=== PATIENT | male | born 1955 | race Caucasian/White ===

== ENCOUNTER 2022-02-07 13:17 | Emergency (ER) | payer MEDICARE, SELFPAY ==
[2022-02-07 13:36] VITALS: BP 133/73; PULSE 92; RESP 16; TEMP 36.7; O2SAT 97
--- NOTE | 2022-02-07 14:02 | ED.GENADUL_ITS ---
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 Please stop taking atorvastatin while you are taking Paxlovid and for 3 days after you have completed paxlovid. Then you may resume taking atorvastatin as usual. Discharge Instructions Additional Instructions: Please return immediately to the emergency department if you develop any new or worsening symptoms, if your condition does not improve as expected, or if you become otherwise concerned. It is extremely important that you call soon as possible to make an appointment to be seen in follow-up for this visit by your primary care doctor. You have been prescribed Paxlovid for COVID-19. It is very important that you stop taking your atorvastatin while you are taking Paxlovid and for 3 days after you have finished taking Paxil AVID. Then you may resume taking atorvastatin as usual. Discharge Data Discharge Date/Time-TO BE ENTERED AT DEPARTURE: 02/07/22 17:09 Medical Decision Making Heri Adkins is a 66-year-old man with a history of hyperlipidemia, hypertension, diabetes presenting to the emergency department with COVID. Patient is accompanied by his who is in the exam room with him and is also registered as a patient COVID-positive with similar symptoms. Tested positive for COVID at home yesterday. Patient reports that he became symptomatic 2 days ago, states that his son tested positive for COVID 4 days ago. Patient reports that has had some mild toe pain, denies any other pain, denies current pain. Reports cough, rhinorrhea, denies fevers, vomiting, diarrhea, shortness of breath, numbness, weakness. Patient reports that he has no pain currently in the emergency department. Patient reports that he has been eating and drinking as usual. Patient and his report that they are from [place], and are driving home in a few days. They state that they have presented to the emergency department to receive paxlovid, and otherwise would not have come to the emergency department and do not want further evaluation at this time. Patient is well and nontoxic-appearing on exam. Concern for COVID-19. Exam/history at this time is not consistent with acute coronary syndrome, pulmonary embolism, sepsis, other acute emergent life-threatening process. Patient requesting Paxlovid, given that we have no history in our system, plan for screening CMP to evaluate renal/hepatic function. Patient home medications checked with Paxlovid for interaction, patient should stop atorvastatin. Patient was counseled that he should not take atorvastatin while he is taking Paxlovid and for 3 days after he completes atorvastatin. Patient verbalized understanding and is amenable. I had a discussion with Patient regarding return to emergency department precautions, home care, and importance of outpatient follow-up. Pt verbalizes understanding of the plan and is amenable. Patient discharged to home with clear plan for outpatient follow- up. All questions were answered. Disposition decision was made weighing the risks and benefits of hospitalization versus outpatient treatment, the risk for further decompensation, and the patient's wishes. Medical Records Medical records reviewed: Yes I reviewed the patient's medical records. Lab Data Lab results reviewed: Yes I reviewed the patient's lab results. Labs: Laboratory Tests Range/Units 02/07/22 15:05 Sodium (136-145) mmol/L 137 Potassium (3.5-5.1) mmol/L 3.9 Chloride (98-107) mmol/L 102 Carbon Dioxide (21.0-32.0) mmol/L 23.9 Anion Gap (3-11) mmol/L 11.1 H BUN (7-18) mg/dL 25 H Creatinine (0.70-1.30) mg/dL 1.3 Estimated GFR/1.73 m2 (mL/min/1.73m2) 55.23 Glucose (74-106) mg/dL 120 H Calcium (8.5-10.1) mg/dL 9.3 Total Bilirubin (0.2-1.0) mg/dL 0.9 AST (15-37) U/L 23 ALT (16-63) U/L 26 Alkaline Phosphatase (46-116) U/L 86 Total Protein (6.4-8.2) g/dL 8.3 H Albumin (3.4-5.0) g/dL 4.2 HPI General Mode of arrival: ambulatory . Date/Time Provider Initiated Documentation: 02/07/22 13:38 . Limitations to Documentation: no limitations . Information obtained by: patient, RN notes reviewed and old records reviewed . HPI Narrative: Heri Adkins is a 66-year-old man with a history of hyperlipidemia, hypertension, diabetes presenting to the emergency department with COVID. Patient is accompanied by his who is in the exam room with him and is also registered as a patient COVID-positive with similar symptoms. Tested positive for COVID at home yesterday. Patient reports that he became symptomatic 2 days ago, states that his son tested positive for COVID 4 days ago. Patient reports that has had some mild toe pain, denies any other pain, denies current pain. Reports cough, rhinorrhea, denies fevers, vomiting, diarrhea, shortness of breath, numbness, weakness. Patient reports that he has no pain currently in the emergency department. Patient reports that he has been eating and drinking as usual. Patient and his report that they are from [place], and are driving home in a few days. They state that they have presented to the emergency department to receive paxlovid, and otherwise would not have come to the emergency department and do not want further evaluation at this time. 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 PO DAILY 02/07/22 02/07/22 Thyroid) Allergies Allergy/AdvReac Type Severity Reaction Status Date / Time No Known Allergies Allergy Unverified 02/07/22 13:39 General Stated Complaint: RespSymp SHALOM: 4 Review of Systems Narrative: Constitutional: denies fevers Eyes: denies eye pain ENT: denies ear pain, dental pain, sore throat Cardiovascular: denies chest pain, edema Respiratory: denies SOB, reports cough GI: denies abdominal pain, vomiting, diarrhea : denies flank pain MSK: denies back pain, neck pain, arthralgias, myalgias, reports intermittent toe pain Skin: denies rash Neuro: denies headaches, numbness, weakness PFSH All Active Problems COVID-19 (Acute) Social History Smoking/Tobacco Use Status: Never Smoking risk assessment performed?: Yes Alcohol Intake: current Alcohol Intake frequency: a few times a week Substance use type: does not use Do you feel safe at home: Yes Do you feel safe in your relationship?: Yes Exam Narrative Exam Narrative: Constitutional: well and [id number], pleasant, conversing normally HENT: head atraumatic/normocephalic/normal inspection, mucous membranes moist Eyes: conjunctiva normal, sclera normal, pupils 3mm b/l Neck: no stridor, normal ROM, trachea midline Resp: normal work of breathing, speaking in full sentences Cardio: normal rate, normal rhythm Skin: warm, dry, normal color, no rash Neuro: alert, not altered, grossly non-focal, normal tone, normal gait Ext: Moving all extremities equally Psych: normal mood, normal affect, normal behavior Course Vital Signs Vital signs: Vital Signs Temperature 36.7 C 02/07/22 13:36 Pulse 92 H 02/07/22 13:36 Respiratory Rate 16 02/07/22 13:36 Blood Pressure 133/73 02/07/22 13:36 Pulse Oximetry 97 02/07/22 13:36 Temperature 36.7 C 02/07/22 13:36 Pulse 92 H 02/07/22 13:36 Respiratory Rate 16 02/07/22 13:36 Respiratory Effort 02/07/22 13:41 Blood Pressure 133/73 02/07/22 13:36 Pulse Oximetry 97 02/07/22 13:36
[2022-02-07 15:35] LABS: ALT 26 U/L (16-63); AST 23 U/L (15-37); Albumin 4.2 g/dL (3.4-5.0); Alkaline Phosphatase 86 U/L (46-116); Anion Gap 11.1 mmol/L (3-11); BUN 25 mg/dL (7-18); Bilirubin, Total 0.9 mg/dL (0.2-1.0); CO2 23.9 mmol/L (21.0-32.0); CREATININE 1.3 mg/dL (0.70-1.30); Calcium 9.3 mg/dL (8.5-10.1); Chloride 102 mmol/L (98-107); Estimated GFR 55.23 (mL/min/1.73m2); Glucose 120 mg/dL (74-106); Potassium 3.9 mmol/L (3.5-5.1); Sodium 137 mmol/L (136-145); Total Protein 8.3 g/dL (6.4-8.2)
[2022-02-07 17:03] VITALS: BP 137/86; PULSE 88; RESP 16; TEMP 36.7; O2SAT 97
== END 2022-02-07 17:09 | disposition home or self-care (01) ==
PROVIDERS: Emergency Provider Student in an Organized Health Care Education/Training Program
DX: U07.1 COVID-19 (principal); E78.5 Hyperlipidemia, unspecified; Z79.899 Other long term (current) drug therapy; I10 Essential (primary) hypertension; E11.9 Type 2 diabetes mellitus without complications
CPT/HCPCS: 80053; 99283